=== PATIENT | female | born 1960 | race African-American/Black ===

== ENCOUNTER 2021-12-23 08:30 | Day surgery (SDC) | payer MEDICARE, OTHER ==
[~2021-12-23] VITALS: Ht 162.6 cm; Wt 136.4 kg
[~2021-12-23 08:30] MED LIST: AMLO5TAB PO; FLUT16SP26; LEVO50TA PO; LOSA1TAB41 PO; POTA8TAB69 PO
[2021-12-23 08:40] VITALS: BP 139/83
[2021-12-23] MEDS ORDERED: METO-384 PO (09:14)
[2021-12-23] MEDS ORDERED: AMLO10TA PO (09:14)
[2021-12-23] MEDS ORDERED: SPIR100T5 PO (09:15)
[2021-12-23] MEDS ORDERED: KEN40I IM (09:15)
[2021-12-23] MEDS ORDERED: fentaNYL/PF 50MCG/1 ML 2ML syringe ONE (09:33)
[2021-12-23] MEDS ORDERED: MIDAZolam 1 MG/ML 5ML VIAL ONE (09:34)
[2021-12-23] MEDS ORDERED: diphenhydrAMINE 50 mg/ml inj ONE (09:34)
[2021-12-23] MEDS ORDERED: LIDOcaine Viscous 15ml cup ONE (09:34)
[2021-12-23 10:35] VITALS: BP 141/71
[2021-12-23 10:45] VITALS: BP 125/73
[2021-12-23 10:55] VITALS: BP 126/72
[2021-12-23 11:05] VITALS: BP 131/76
== END 2021-12-23 11:20 | disposition home or self-care (01) ==
LOC: GI LAB 08:30
PROVIDERS: ATTEND Internal Medicine Gastroenterology
DX: Z09 Encounter for follow-up examination after completed treatment for conditions other than malignant neoplasm (principal); R10.13 Epigastric pain; D12.2 Benign neoplasm of ascending colon; K63.5 Polyp of colon; K29.70 Gastritis, unspecified, without bleeding; K31.7 Polyp of stomach and duodenum; Z86.010 Personal history of colon polyps; I10 Essential (primary) hypertension; J45.909 Unspecified asthma, uncomplicated; E66.9 Obesity, unspecified; Z68.43 Body mass index [BMI] 50.0-59.9, adult; Z72.89 Other problems related to lifestyle; Z88.1 Allergy status to other antibiotic agents; Z88.8 Allergy status to other drugs, medicaments and biological substances; Z91.013 Allergy to seafood
CPT/HCPCS: 43239; 45380; 45385; 88305; 99153; C1773; G0500; J1200; J2250; J3010; J7030; Z7512; 99152; A4620

== ENCOUNTER 2022-08-04 18:25 | Emergency (ER) | payer MEDICARE, OTHER ==
[~2022-08-04] VITALS: Ht 162.6 cm; Wt 132.4 kg
[~2022-08-04 18:25] MED LIST changes: +AMLO10TA PO; +KEN40I IM; +METO-384 PO; +SPIR100T5 PO
[2022-08-04 18:32] VITALS: BP 151/79
[2022-08-04] MEDS ORDERED: PRED20TA PO (22:33)
[2022-08-04] MEDS ORDERED: clindamycin 150mg capsule PO ONE (22:35)
[2022-08-04] MEDS ORDERED: CLIN150C8 PO (22:44)
== END 2022-08-04 22:54 | disposition home or self-care (01) ==
LOC: ER 18:25
DX: L25.8 Unspecified contact dermatitis due to other agents (principal); T36.1X5A Adverse effect of cephalosporins and other beta-lactam antibiotics, initial encounter; Y92.89 Other specified places as the place of occurrence of the external cause; I10 Essential (primary) hypertension; G89.29 Other chronic pain; M54.9 Dorsalgia, unspecified; Z90.49 Acquired absence of other specified parts of digestive tract; Z88.6 Allergy status to analgesic agent; Z88.1 Allergy status to other antibiotic agents; Z79.899 Other long term (current) drug therapy; Z91.013 Allergy to seafood; Z79.1 Long term (current) use of non-steroidal anti-inflammatories (NSAID); Z79.2 Long term (current) use of antibiotics
CPT/HCPCS: 99283

== ENCOUNTER 2024-10-18 08:31 | Outpatient (CLI) | payer MEDICARE, OTHER ==
[~2024-10-18] VITALS: Ht 163.8 cm; Wt 125.9 kg
[~2024-10-18 08:31] MED LIST changes: +CLIN-214 PO
[2024-10-18] MEDS: sincalide inj 2.5 MCG in normal saline 100ml IV soln 100 ML IV ONE (10:10)
== END 2024-10-18 23:59 | disposition home or self-care (01) ==
LOC: NM 08:31
PROVIDERS: ATTEND Nurse Practitioner
DX: K80.20 Calculus of gallbladder without cholecystitis without obstruction (principal)
CPT/HCPCS: 78227; A9537; J2805

== ENCOUNTER 2024-11-17 06:06 | Day surgery (SDC) | payer MEDICARE, OTHER ==
[2024-11-10 15:13] LABS: BILIRUBIN,URINE NEGATIVE (Neg); CLARITY,URINE SLIGHTLY CLOUDY (Clear); COLOR,URINE YELLOW (Yellow); GLUCOSE, URINE NEGATIVE (Neg); KETONES,URINE NEGATIVE (Neg); LEUKOCYTE ESTERASE ,URINE NEGATIVE (Neg); NITRITES, URINE NEGATIVE (Neg); OCCULT BLOOD,URINE NEGATIVE (Neg); PH,URINE 5.5 (4.8-8.0); PROTEIN,URINE NEGATIVE (Neg); UROBILINOGEN,URINE 0.2 E.U/dL (0.2-1.0)
[2024-11-10 15:13] LABS: BASOPHILS # (AUTO) 0.1 X10'3 (0-0.2); BASOPHILS % (AUTO) 0.7 % (0-1); EOSINOPHILS # (AUTO) 0.3 X10'3 (0-0.9); EOSINOPHILS % (AUTO) 2.8 % (0-6); LYMPHOCYTES # (AUTO) 2.2 X10'3 (1.1-4.8); LYMPHOCYTES % (AUTO) 23.3 % (21-51); MEAN CORPUSCULAR HEMOGLOBIN 26.8 PG (27.0-31.0); MEAN CORPUSCULAR HGB CONC 33.4 g/dL (33.0-36.5); MEAN CORPUSCULAR VOLUME 80.5 FL (78-98); MEAN PLATELET VOLUME 10.5 FL (7.4-10.4); MONOCYTES # (AUTO) 0.6 X10'3 (0-0.9); MONOCYTES % (AUTO) 6.6 % (2-12); NEUTROPHILS # (AUTO) 6.4 X10'3 (1.8-7.7); NEUTROPHILS % (AUTO) 66.6 % (42-75); PRE OP HEMATOCRIT 45.1 % (35.0-45.0); PRE OP PLATELET COUNT 214 X10'3 (140-440); PRE OP WHITE BLOOD COUNT 9.6 10'3 (4.8-10.8); RED CELL DISTRIBUTION WIDTH 16.2 % (11.5-14.5)
[2024-11-10 15:18] LABS: UA COLLECTION TYPE CLN CATCH MIDSTREAM
[2024-11-10 15:20] LABS: PRE OP PROTIME 10.2 SECONDS (9.0-12.0)
[2024-11-10 15:22] LABS: BACTERIA,URINE FEW /HPF (Neg); MUCUS STRANDS MANY /LPF (Neg); SQUAMOUS EPITHELIAL CELL,UR MANY /LPF (FEW); WBC,URINE 0-4 /HPF (0-4)
[2024-11-10 15:23] LABS: ALBUMIN 3.8 G/DL (3.4-5.0); ALKALINE PHOSPHATASE 133 IU/L (46-116); BLOOD UREA NITROGEN 18 MG/DL (7-18); BUN/CREATININE RATIO 18.6 (10.0-20.0); CALCIUM 9.6 MG/DL (8.5-10.1); CHLORIDE 104 MMOL/L (99-107); CREATININE 0.97 MG/DL (0.40-0.90); PRE OP ALT 35 U/L (30-65); PRE OP ANION GAP 8 (8-16); PRE OP AST 13 U/L (10-37); PRE OP BILIRUB, TOTAL 0.4 MG/DL (0.0-1.0); PRE OP GLUCOSE 110 MG/DL (70-104); PRE OP POTASSIUM 4.3 MMOL/L (3.4-5.1); PRE OP SODIUM 137 MMOL/L (135-145); TOTAL CARBON DIOXIDE 25.1 MMOL/L (24-32); TOTAL PROTEIN 7.5 G/DL (6.4-8.2); eGFR 70 ML/MIN
[2024-11-16] MEDS: DOCUMENT DATE & TIME OF BETA-BLOCKER PO ONE (16:00)
[2024-11-17] VITALS (15 sets, daily range): BP systolic 106–143; BP diastolic 51–77; PULSE 82–101; RESP 16–28; TEMP 98.6; O2SAT 91–100
[~2024-11-17] VITALS: Ht 162.6 cm; Wt 125.3 kg
[2024-11-17] MEDS: VANCOMYCIN/H2O 1.5g/300mL PB 300 ML IV ONE (05:30)
[~2024-11-17 06:06] MED LIST changes: +ACET-1025 PO; -AMLO5TAB PO; -CLIN-214 PO; +CLOT45CR TOP; +DUPI300S SUBCUT; -FLUT16SP26; +KEN0.1O TOP; -KEN40I IM; -LEVO50TA PO; -LOSA1TAB41 PO; -POTA8TAB69 PO; +STOOL SOFTENERS; +TIRZ5PEN SQ; +VITAMIN D3
[2024-11-17] MEDS: famotidine 20mg tablet PO ONE (07:15)
[2024-11-17] MEDS: ringers solution, lacted 1,000 ML IV SCH ×2 (07:16→11:34)
[2024-11-17] MEDS ORDERED: BUPIVAcaine 2.5mg/ml inj 50ml vial (contains preservative) ONE (09:01)
[2024-11-17] MEDS ORDERED: sevoflurane 250ml liquid IH ONE (09:37)
[2024-11-17] MEDS ORDERED: fentaNYL /PF 50mcg/ml 5ml ampule ONE (09:44)
[2024-11-17] MEDS ORDERED: midazolam 1 mg/ML 2ml injection ONE (09:44)
[2024-11-17] MEDS ORDERED: LIDOcaine 1%/PF 5ML 10 MG/ML VIAL ONE (09:48)
[2024-11-17] MEDS ORDERED: propofol inj 20 ML IV ONE (09:48)
[2024-11-17] MEDS ORDERED: rocuronium 10mg/ml inj IV ONE (09:55)
[2024-11-17] MEDS ORDERED: morphine 4 MG/ML inj SYRINge IV PRN (10:45)
[2024-11-17] MEDS ORDERED: enalaprilat 1.25mg/ml 2ml vial IV PRN (10:45)
[2024-11-17] MEDS ORDERED: ondansetron/PF 4mg/2ml inj IV PRN (10:45)
[2024-11-17] MEDS ORDERED: meperidine/PF 25mg/ml syringe IV PRN ×3 (10:45)
[2024-11-17] MEDS ORDERED: proCHLORperazine 10 MG/2 ml inj IV PRN (10:45)
[2024-11-17] MEDS ORDERED: morphine 2 MG/ML inj. syringe IV PRN (10:45)
[2024-11-17] MEDS ORDERED: labetalol 20mg/4ml (5mg/ml) syringe IV PRN (10:45)
[2024-11-17] MEDS ORDERED: ondansetron/PF 4mg/2ml inj ONE (10:56)
[2024-11-17] MEDS ORDERED: neostigmine methylsulfate 1 MG/ML 10ml vial ONE (11:03)
[2024-11-17] MEDS: acetaminophen 1,000mg/100ml IV 100 ML IV ONE (11:34)
== END 2024-11-17 13:14 | disposition home or self-care (01) ==
LOC: PAS 06:06
PROVIDERS: ATTEND Surgery
DX: K82.8 Other specified diseases of gallbladder (principal); K81.1 Chronic cholecystitis; Z90.710 Acquired absence of both cervix and uterus; Z98.890 Other specified postprocedural states; I10 Essential (primary) hypertension; E11.9 Type 2 diabetes mellitus without complications; K21.9 Gastro-esophageal reflux disease without esophagitis; M19.90 Unspecified osteoarthritis, unspecified site; Z79.899 Other long term (current) drug therapy; Z88.8 Allergy status to other drugs, medicaments and biological substances
CPT/HCPCS: 36415; 47562; 71046; 80053; 81001; 82948; 85025; 85610; 85730; 86885; 86900; 86901; 88304; 93005; A4215; A4618; A7000; J0131; J1100; J2250; J2405; J2704; J2710; J3010; J3372; J3490; J7030; J7120; Z7506; Z7508; Z7512; Z7610